=== PATIENT | female | born 1985 | race Caucasian/White ===

== ENCOUNTER 2021-03-07 16:39 | Emergency (ER) | payer OTHER ==
[~2021-03-07] VITALS: Ht 162.6 cm; Wt 86.2 kg
[2021-03-07] MEDS ORDERED: LEVOFLOXACIN500 MG PO (22:15)
[2021-03-07] MEDS ORDERED: OSEL75CA PO (22:15)
[2021-03-07] MEDS ORDERED: MEDROLPACK PO (22:15)
== END 2021-03-07 22:18 | disposition home or self-care (01) ==
LOC: ER 16:39
DX: J10.89 Influenza due to other identified influenza virus with other manifestations (principal); Z03.818 Encounter for observation for suspected exposure to other biological agents ruled out